=== PATIENT | female | born 1945 | race Caucasian/White ===

== ENCOUNTER → 2016-09-16 | Outpatient (CLI) | payer OTHER ==
[~2016-09-16] MED LIST: ACET-1256 PO; CALC500C70 PO; FBR PO; FISHOIL PO; LEVO125T72 PO; MULTTAB58 PO; NAPR1TAB9 PO; OMEP20CA59 PO; POTA8CAP6 PO
[2016-09-16 10:57] LABS: BASO % 0.4 %; BASO ABS # 0.03 K/uL (0-0.2); COMPLETE YES; EOS % 2.5 %; HEMATOCRIT 41.3 % (37-47); IG% 0.3 %; LYMPH % 29.1 %; LYMPH ABS # 2.01 K/uL (1.2-3.4); MEAN CORPUSCULAR HEMOGLOBIN 31.8 pg (25-34); MEAN CORPUSCULAR HGB CONC 34.6 g/dl (32-36); MEAN PLATELET VOLUME 10.2 fL (7.4-10.4); MONO % 8.8 %; NEUT % 58.9 %; PLATELET COUNT 198 K/uL (130-400); RED BLOOD COUNT 4.49 M/uL (4.2-5.4); WHITE BLOOD COUNT 6.91 K/uL (4.8-10.8)
[2016-09-16 11:19] LABS: ALT/SGPT 29 U/L (12-78); AST/SGOT 21 U/L (15-37); BLOOD UREA NITROGEN 17 mg/dl (7-18); BUN/CREATININE RATIO 17.4 (10-20); CALCIUM 8.9 mg/dl (8.5-10.1); CARBON DIOXIDE 31 mmol/L (21-32); CHLORIDE 107 mmol/L (98-107); CHOLESTEROL 175 mg/dl (0-200); CREATININE 0.99 mg/dl (0.60-1.20); GLUCOSE 98 mg/dl (70-99); POTASSIUM 3.7 mmol/L (3.5-5.1); SODIUM 143 mmol/L (136-145); TRIGLYCERIDES 109 mg/dl (0-150); VERY LOW DENSITY LIPOPROT CALC 22 mg/dl
[2016-09-16 11:22] LABS: ALB/GLOB RATIO 1.3 (0.9-2); ALKALINE PHOSPHATASE 73 U/L (45-117); CHOLESTEROL/HDL RATIO 2.2; HDL CHOLESTEROL 81 mg/dl; LDL CHOLESTEROL CALCULATED 72 mg/dl
== END | disposition home or self-care (01) ==
LOC: C.LABBC 08:41
PROVIDERS: ATTEND Internal Medicine Pulmonary Disease
DX: E03.9 Hypothyroidism, unspecified (principal); E78.5 Hyperlipidemia, unspecified

== ENCOUNTER → 2017-02-08 | Outpatient (CLI) | payer OTHER ==
--- NOTE | 2017-02-08 11:15 | DIAGNOSTIC IMAGING REPORT ---
LEFT FOOT MIN 3 VIEWS ROUTINE CLINICAL HISTORY: 71 years-old Female presenting with acute foot pain at the left fifth metatarsal. TECHNIQUE: Frontal, oblique, and lateral views of the left foot were obtained. COMPARISON: Comparison made to plain radiographs of the right foot from 2015. FINDINGS: No acute fracture or malalignment. Minimal degenerative change noted at the first metatarsophalangeal joint, which is less severe than on the right. Prominent bone spurs at the inferior and posterior calcaneus. Apparent cortical irregularity of the lateral aspect of the base of the fifth metatarsal is suggested, although not corroborated on additional views. This is indeterminate. IMPRESSION: Apparent cortical irregularity at the lateral aspect of the base of the fifth metatarsal is not corroborated on all views. This is indeterminate. Correlate for point tenderness at this site. If there is continuing clinical concern, noncontrast MR be obtained. Electronically signed by: Chan Covington M.D. 02/08/2017 11:13 AM Dictated Date/Time: 02/08/2017 11:11 AM
== END | disposition home or self-care (01) ==
LOC: C.RAD1850 10:32
PROVIDERS: ATTEND Internal Medicine Pulmonary Disease
DX: M79.672 Pain in left foot (principal); R93.7 Abnormal findings on diagnostic imaging of other parts of musculoskeletal system

== ENCOUNTER → 2017-03-31 | Outpatient (CLI) | payer OTHER ==
--- NOTE | 2017-03-31 15:47 | MAMMOGRAPHY REPORT ---
BILATERAL DIGITAL SCREENING MAMMOGRAM TOMOSYNTHESIS WITH CAD: 03/31/2017 CLINICAL HISTORY: Routine screening. Patient has no complaints. TECHNIQUE: Breast tomosynthesis in addition to standard 2D mammography was performed. Current study was also evaluated with a Computer Aided Detection (CAD) system. COMPARISON: Comparison is made to exams dated: 03/30/2016 mammogram, 03/25/2015 mammogram, 03/23/2014 mammogram, 03/22/2013 mammogram, 03/14/2012 mammogram, and 03/11/2011 mammogram - [facility]. BREAST COMPOSITION: There are scattered areas of fibroglandular density in both breasts. FINDINGS: No suspicious masses, calcifications, or areas of architectural distortion are noted in ei ther breast. There has been no significant interval change compared to prior exams. IMPRESSION: ACR BI-RADS CATEGORY 1: NEGATIVE There is no mammographic evidence of malignancy. A 1 year screening mammogram is recommended. The pa tient will receive written notification of the results. Approximately 10% of breast cancers are not detected with mammography. A negative mammographic report should not delay biopsy if a clinically suggestive mass is present. Shasta Melendez M.D. ah/:03/31/2017 13:45:50 Ruby On Rails Software Developer: Kirti YARBROUGH(Malena)(M), [facility] letter sent: Normal 1/2 BI-RADS Code: ACR BI-RADS Category 1: Negative
== END | disposition home or self-care (01) ==
LOC: C.MAMM 13:09
PROVIDERS: ATTEND Obstetrics & Gynecology
DX: Z12.31 Encounter for screening mammogram for malignant neoplasm of breast (principal)

== ENCOUNTER → 2017-06-11 | Outpatient (CLI) | payer OTHER ==
[2017-06-11 14:02] LABS: ALBUMIN 3.9 gm/dl (3.4-5.0); ALT/SGPT 34 U/L (12-78); AST/SGOT 22 U/L (15-37); BLOOD UREA NITROGEN 17 mg/dl (7-18); CALCIUM 8.7 mg/dl (8.5-10.1); CARBON DIOXIDE 31 mmol/L (21-32); CHOLESTEROL 226 mg/dl (0-200); CREATININE 0.93 mg/dl (0.60-1.20); GLUCOSE 102 mg/dl (70-99); POTASSIUM 3.5 mmol/L (3.5-5.1); SODIUM 140 mmol/L (136-145)
[2017-06-11 14:04] LABS: ALKALINE PHOSPHATASE 78 U/L (45-117); LDL CHOLESTEROL CALCULATED 120 mg/dl; TOTAL PROTEIN 7.4 gm/dl (6.4-8.2)
== END | disposition home or self-care (01) ==
LOC: C.LABBC 09:14
PROVIDERS: ATTEND Internal Medicine Pulmonary Disease
DX: E78.5 Hyperlipidemia, unspecified (principal)

== ENCOUNTER 2022-06-29 13:36 | Observation (INO) ==
--- NOTE | 2022-06-29 14:46 | Electrocardiogram Report ---
Test Reason : Blood Pressure : / mmHG Vent. Rate : 079 BPM Atrial Rate : 079 BPM P-R Int : 156 ms QRS Dur : 082 ms QT Int : 396 ms P-R-T Axes : 043 -37 016 degrees QTc Int : 454 ms Sinus rhythm with occasional Premature ventricular complexes Left axis deviation Moderate voltage criteria for LVH, may be normal variant Diffuse Minor Nonspecific ST abnormality Abnormal ECG When compared with ECG of 16-MAR-2012 15:59, Premature ventricular complexes are now Present Confirmed by Yon Lomas ([id number]) on 06/29/2022 2:46:40 PM Referred By: Confirmed By:Yon Lomas
[2022-06-29 14:54] LABS: Basophils # (auto) 0.04 K/uL (0-0.2); Basophils % (auto) 0.6 %; Eosinophils # (auto) 0.17 K/uL (0-0.50); Eosinophils % (auto) 2.4 %; Hematocrit (blood only) 38.7 % (34.1-44.9); Hemoglobin 13.3 g/dl (12.0-16.0); Immature Granulocytes # (auto) 0.03 K/uL (0.00-0.02); Immature Granulocytes % (auto) 0.4 %; Lymphocytes # (auto) 1.79 K/uL (1.2-3.4); Lymphocytes % (auto) 25.1 %; Mean Corpuscular Hemoglobin 32.2 pg (25.0-34.0); Mean Corpuscular Hgb Conc 34.4 g/dL (32.0-36.0); Mean Corpuscular Volume 93.7 fL (80.0-100.0); Mean Platelet Volume 10.7 fL (9.4-12.3); Monocytes # (auto) 0.57 K/uL (0.24-0.82); Neutrophils # (auto) 4.52 K/uL (1.4-6.5); Neutrophils % (auto) 63.5 %; Platelet Count 208 K/uL (130-400); RDW Coefficient of Variation 11.9 % (11.5-14.5); RDW Standard Deviation 40.9 fL (36.4-46.3); Red Blood Count 4.13 M/uL (3.93-5.22); White Blood Count 7.12 K/ul (4.8-10.8)
[2022-06-29 15:11] LABS: Partial Thromboplastin Ratio 0.9; Partial Thromboplastin Time 26.1 Seconds (21.0-31.0); Prothrombin Time 10.6 Seconds (9.0-12.0)
[2022-06-29 15:30] LABS: Albumin Globulin Ratio 1.5 (0.9-2); Albumin Level 4.4 gm/dl (3.4-5.0); BUN Creatinine Ratio 24.5 (10-20); Bilirubin,Total 0.5 mg/dl (0.2-1.0); Est GFR (African American) 66.9 ml/min; Est GFR (Non-African American) 57.7 ml/min; Globulin 2.9 gm/dl (2.5-4.0); Potassium 3.8 mmol/L (3.5-5.1); Total Protein 7.3 gm/dl (6.0-8.3); Troponin I High Sensitivity 12.3 pg/ml (0-14)
--- NOTE | 2022-06-29 15:35 | XRay Report ---
XR chest 1V portable CLINICAL HISTORY: chest pain TECHNIQUE: Single frontal radiograph of the chest was obtained. Comparison: Comparison is made to chest radiograph 03/16/2012 FINDINGS: No lines and tubes are seen. Cardiomegaly is noted. The lungs are clear. No evidence of pleural effus ion or pneumothorax. IMPRESSION: No acute chest disease. ACT 112: Negative or not required by law. Electronically signed by: Danial Prajapati M.D. 06/29/2022 3:34 PM
--- NOTE | 2022-06-29 15:46 | Emergency Department Note ---
Impression & Plan Retrosternal chest pain ED Provider Note INFORMANT: Patient ED PROVIDER(S): Nimesh Montenegro MD CHIEF COMPLAINT: Chest pain PLAN: Disposition: Admitted Condition: Good Outpatient prescription management: none Referral: None MEDICAL DECISION MAKING: Patient presented with a short episode of chest pain. There was some concern given the type of chest pain. Her first ECG was unremarkable. A repeat ECG did not show any significant change. First troponin and remainder of blood work was unremarkable. I did consult with her property worker, Dr. Lomas. He did recommend repeat troponin and could see her in the office if this was negative. Unfortunately repeat troponin had a delta in the wrong direction and was positive. At that point he recommended the patient be admitted for further management. I did consult with the hospitalist service. Patient was admitted for further management. Triage Nursing notes reviewed and agree them. Vital Signs: reviewed and remarkable for no significant abnormalities Prior /Outside records reviewed: none Differential diagnosis: Cardiac ischemia, aortic dissection, pulmonary embolism, pneumothorax, pneumonia, pericarditis, myocarditis, esophageal rupture, GERD, cholecystitis, pancreatitis, musculoskeletal, as well as other pathologies. Diagnostics, as interpreted by me: ECG: Twelve-lead ECG #1 reveals a sinus rhythm with occasional PVCs and left axis deviation at [address] abnormality present. There are some T wave flattening anteriorly when compared to 03/16/2012. Twelve-lead ECG #2 reveals normal sinus rhythm at 68 bpm. Left axis deviation. Voltage could hear for LVH present. When compared to first ECG there is no significant change. Cardiac Monitoring: Cardiac monitoring ordered by me: The patient was placed on continuous cardiac monitoring and observed. It revealed a normal sinus rhythm at 68 beats per minute without ectopy or evidence of dysrhythmia. Medical decision rules: Heart score Imaging studies: Chest x-ray. Findings: A chest x-ray was performed and revealed no pneumothorax, effusion, infiltrate, pulmonary edema, free air under the diaphragm, or wide mediastinum. Impression: No acute disease. HPI: The patient is a 77year old female who presents to the Emergency Room with complaints of retrosternal chest pain. This started this afternoon and is currently resolved. Patient states it lasted about 5 minutes. The patient also notes the following associated symptoms, none. The patient has rested for relieving factors. Current pain is rated as 0/10. No prior cardiac history. Pt denies LOC, headache, fevers, chills, diaphoresis, visual changes, neck pain, breathing difficulties, nausea, vomiting, abdominal pain, back pain, melena, hematochezia, urinary symptoms, numbness, weakness, lymphadenopathy, rash, or other complaints. PAST MEDICAL HISTORY: See Below, high cholesterol, hypertension PAST SURGICAL HISTORY: See Below, SOCIAL HISTORY: See Below, non-smoker. No recent travel. HOME MEDICATIONS: See Below ALLERGIES: See Below VITALS: See Below PHYSICAL EXAMINATION: GENERAL: Awake, alert, well-appearing, in no distress HENT: Normocephalic, atraumatic. Oropharynx unremarkable. EYES: Normal conjunctiva. Sclera non-icteric. NECK: Inspection normal. Non-tender. Supple. No nuchal rigidity. FROM. No masses. RESPIRATORY: Clear to auscultation. No wheezes. No rales. Normal respiratory effort. CARDIAC: Normal rate. Normal rhythm. No murmurs. No rubs. Extremities warm and well perfused. Pulses equal. No JVD. GI: Soft, non-distended. No tenderness to palpation. No rebound or guarding. No masses. RECTAL: Deferred. MUSCULOSKELETAL: Atraumatic. Chest examination reveals no tenderness. The back is symmetrical on inspection without obvious abnormality. There is no CVA tenderness to palpation. No joint edema. LOWER EXTREMITIES: Calves are equal size bilaterally and non-tender. No edema. No discoloration. NEURO: Normal sensorium. No sensory or motor deficits noted. SKIN: No rash or jaundice noted. OBSERVATION NOTE: The patient was placed in observation status at 1500 hrs. Chest pain indication. During the time in observation, the patient was frequently reassessed and received monitoring. Repeat troponin testing was performed after consultation with cardiology. Unfortunately her troponin increased and cardiology recommended admission at that time. On Final reassessment the patient is doing well however will require admission. Consultation was made with the hospitalist service and the patient will be admitted at this time. A total observation time of 2.5 hours. Past Med/Surg History Medical History Bilateral salpingectomy with oophorectomy (03/23/12) Ectopic heartbeat Metoprolol for this > follows Kip Marry GERD (gastroesophageal reflux disease) on occasion History of Mohs micrographic surgery for skin cancer Hyperlipidemia Hypertension Hypothyroidism Pseudocholinesterase deficiency had reaction during procedure 1987 in which this was discovered > couldn't breath/ paralysis Vaginal hysterectomy (03/23/12) Surgical History History of appendectomy History of cholecystectomy History of colonoscopy (2014) History of dilation and curettage History of oral surgery wisdom teeth History of thyroid surgery total thyroidectomy for malignancy> also radioactive iodine History of tonsillectomy and adenoidectomy Family History Mother Diabetes Brother Diabetes Father Heart disease Family/Other Diabetes Grandfather Colon cancer Social History Smoking Status: Never smoker Second Hand Exposure: No; Hx Alcohol Use: Yes Alcohol type: wine Hx Substance Use: No Preferred Language: Vietnamese Communication Ability: Effective 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 Beliefs That Will Affect Care: None marital status: Current Living Situation: Spouse current occupational status: retired Feels Safe at Home: Yes Assistive Devices: None Allergies Allergies Allergy/AdvReac Type Severity Reaction Status Date / Time succinylcholine Allergy Severe paralysis/ Verified 06/29/22 17:48 can't breathe cephalexin [From Keflex] Allergy Intermediate Rash Verified 06/29/22 17:48 codeine Allergy Intermediate SYMPTOMATIC Verified 06/29/22 17:48 HYPOTENSION diphenhydramine Allergy Intermediate bradycardia Verified 06/29/22 17:48 [From Benadryl] tetracycline Allergy Intermediate MUSCLE PAIN Verified 06/29/22 17:48 erythromycin base Allergy Mild Nausea Verified 06/29/22 17:48 Penicillins Allergy Mild RASH Verified 06/29/22 17:48 Sulfa (Sulfonamide Allergy Mild RASH Verified 06/29/22 17:48 Antibiotics) sumatriptan Allergy Mild HIVES Verified 06/29/22 17:48 latex Allergy Unknown SKIN RED Verified 06/29/22 17:48 AND ITCHY meperidine AdvReac Unknown VOMITING Verified 06/29/22 17:48 Home Meds Home Medications Medication Instructions Recorded Confirmed docusate sodium 100 mg capsule 100 mg PO QDL 01/19/19 06/29/22 (Colace) omeprazole 20 mg capsule,delayed 20 mg PO DAILY PRN Acid Reflux 05/29/20 06/29/22 release calcium carbonate 600 mg calcium 600 mg PO QAM 10/02/20 06/29/22 (1,500 mg) tablet (Calcium) multivitamin 1 tab PO PM 10/02/20 06/29/22 psyllium 500 mg capsule 0.52 g PO BID 10/02/20 06/01/22 diclofenac sodium 1 % topical gel 2 g topical BID PRN Pain 06/29/22 06/29/22 (Arthritis Pain (diclofenac)) estradiol 10 mcg vaginal insert 10 mcg vaginal WK 06/29/22 06/29/22 fluvastatin 20 mg capsule 20 mg PO HS 06/29/22 06/29/22 metoprolol succinate 25 mg 25 mg PO BID 06/29/22 06/29/22 tablet,extended release 24 hr omega-3 fatty acids 1,000 mg 1,000 mg PO BIDM 06/29/22 06/29/22 capsule psyllium husk 0.52 gram capsule 1.04 g PO BIDM 06/29/22 06/29/22 (Fiber (psyllium husk)) Previous Rx's Medication Instructions Recorded potassium chloride 20 mEq 20 meq PO QDL #90 tabs 11/27/21 tablet,extended release(part/cryst) levothyroxine 125 mcg tablet 125 mcg PO DAILY #90 tabs 05/05/22 clobetasol 0.05 % topical cream 1 applic topical DAILY PRN 05/20/22 vulvitis #45 grams diltiazem HCl 120 mg capsule,24 120 mg PO PM #90 caps 06/01/22 hr,extended release Results & Data (ED) Vital Signs Vital Signs - 24 hr 06/29/22 13:43 06/29/22 14:18 06/29/22 14:18 Temperature 36.5 C Temperature Source Skin Pulse Rate 84 Pulse Rate [Apical] 72 Pulse Rhythm Regular Pulse Rhythm [Apical] Regular Pulse Strength Normal Pulse Strength [Apical] Normal Respiratory Rate 20 16 Respiratory Effort / Characteristics Non-Labored Spontaneous Non-Labored Respiratory Depth Normal Normal Respiratory Pattern Regular Regular Blood Pressure 150/79 H Blood Pressure [Right Arm] 167/94 H Blood Pressure Mean 102 Blood Pressure Mean [Right Arm] 118 Pulse Oximetry 95 96 96 Oxygen Delivery Method Room Air Room Air Room Air Sepsis Recent Fever Within 48 Hours No Sepsis New/Unexplained Change in Mental Status N/A Sepsis Action Taken by Nursing No Action Required 06/29/22 17:00 06/29/22 18:30 06/29/22 19:00 Temperature Temperature Source Pulse Rate 72 69 Pulse Rate [Apical] 69 Pulse Rhythm Pulse Rhythm [Apical] Regular Pulse Strength Pulse Strength [Apical] Normal Respiratory Rate 22 16 19 Respiratory Effort / Characteristics Non-Labored Respiratory Depth Normal Respiratory Pattern Regular Blood Pressure 144/88 H 160/88 H Blood Pressure [Right Arm] 137/73 Blood Pressure Mean 106 112 Blood Pressure Mean [Right Arm] 94 Pulse Oximetry 97 96 96 Oxygen Delivery Method Room Air Room Air Room Air Sepsis Recent Fever Within 48 Hours Sepsis New/Unexplained Change in Mental Status Sepsis Action Taken by Nursing 06/29/22 19:30 Temperature Temperature Source Pulse Rate 88 Pulse Rate [Apical] Pulse Rhythm Pulse Rhythm [Apical] Pulse Strength Pulse Strength [Apical] Respiratory Rate 18 Respiratory Effort / Characteristics Respiratory Depth Respiratory Pattern Blood Pressure 155/90 H Blood Pressure [Right Arm] Blood Pressure Mean 111 Blood Pressure Mean [Right Arm] Pulse Oximetry 93 Oxygen Delivery Method Room Air Sepsis Recent Fever Within 48 Hours Sepsis New/Unexplained Change in Mental Status Sepsis Action Taken by Nursing Laboratory Data 06/29/22 13:56 06/29/22 13:56 Lab Results 06/29/22 06/29/22 06/29/22 Range/Units 13:56 13:56 13:56 WBC 7.12 (4.8-10.8) K/ul RBC 4.13 (3.93-5.22) M/uL Hgb 13.3 (12.0-16.0) g/dl Hct 38.7 (34.1-44.9) % MCV 93.7 (80.0-100.0) fL MCH 32.2 (25.0-34.0) pg MCHC 34.4 (32.0-36.0) g/dL RDW Std Deviation 40.9 (36.4-46.3) fL RDW Coeff of Georgie 11.9 (11.5-14.5) % Plt Count 208 (130-400) K/uL MPV 10.7 (9.4-12.3) fL Immature Gran % (Auto) 0.4 % Neut % (Auto) 63.5 % Lymph % (Auto) 25.1 % [place] % (Auto) 8.0 % Eos % (Auto) 2.4 % Baso % (Auto) 0.6 % Neut # (Auto) 4.52 (1.4-6.5) K/uL Lymph # (Auto) 1.79 (1.2-3.4) K/uL [place] # (Auto) 0.57 (0.24-0.82) K/uL Eos # (Auto) 0.17 (0-0.50) K/uL Baso # (Auto) 0.04 (0-0.2) K/uL Immature Gran # (Auto) 0.03 H (0.00-0.02) K/uL PT 10.6 (9.0-12.0) Seconds INR 1.0 (0.9-1.1) APTT 26.1 (21.0-31.0) Seconds PTT Ratio 0.9 Sodium 139 (136-145) mmol/L Potassium 3.8 (3.5-5.1) mmol/L Chloride 105 (98-107) mmol/L Carbon Dioxide 27 (21-32) mmol/L Anion Gap 7 (3-11) BUN 23 (6-23) mg/dl Creatinine 0.94 (0.6-1.2) mg/dl Est Cr Clr Drug Dosing 41.0 ml/min Est GFR ( Amer) 66.9 ml/min Est GFR (Non-Af Amer) 57.7 ml/min BUN/Creatinine Ratio 24.5 H (10-20) Glucose 155 H (70-99(Fasting)) mg/dl Calcium 9.0 (8.5-10.1) mg/dl Total Bilirubin 0.5 (0.2-1.0) mg/dl AST 23 (13-39) U/L ALT 19 (7-52) U/L Alkaline Phosphatase 71 (34-104) U/L Troponin I High Sens 12.3 (0-14) pg/ml Total Protein 7.3 (6.0-8.3) gm/dl Albumin 4.4 (3.4-5.0) gm/dl Globulin 2.9 (2.5-4.0) gm/dl Albumin/Globulin Ratio 1.5 (0.9-2) 06/29/22 Range/Units 16:12 WBC (4.8-10.8) K/ul RBC (3.93-5.22) M/uL Hgb (12.0-16.0) g/dl Hct (34.1-44.9) % MCV (80.0-100.0) fL MCH (25.0-34.0) pg MCHC (32.0-36.0) g/dL RDW Std Deviation (36.4-46.3) fL RDW Coeff of Georgie (11.5-14.5) % Plt Count (130-400) K/uL MPV (9.4-12.3) fL Immature Gran % (Auto) % Neut % (Auto) % Lymph % (Auto) % [place] % (Auto) % Eos % (Auto) % Baso % (Auto) % Neut # (Auto) (1.4-6.5) K/uL Lymph # (Auto) (1.2-3.4) K/uL [place] # (Auto) (0.24-0.82) K/uL Eos # (Auto) (0-0.50) K/uL Baso # (Auto) (0-0.2) K/uL Immature Gran # (Auto) (0.00-0.02) K/uL PT (9.0-12.0) Seconds INR (0.9-1.1) APTT (21.0-31.0) Seconds PTT Ratio Sodium (136-145) mmol/L Potassium (3.5-5.1) mmol/L Chloride (98-107) mmol/L Carbon Dioxide (21-32) mmol/L Anion Gap (3-11) BUN (6-23) mg/dl Creatinine (0.6-1.2) mg/dl Est Cr Clr Drug Dosing ml/min Est GFR ( Amer) ml/min Est GFR (Non-Af Amer) ml/min BUN/Creatinine Ratio (10-20) Glucose (70-99(Fasting)) mg/dl Calcium (8.5-10.1) mg/dl Total Bilirubin (0.2-1.0) mg/dl AST (13-39) U/L ALT (7-52) U/L Alkaline Phosphatase (34-104) U/L Troponin I High Sens 15.2 H (0-14) pg/ml Total Protein (6.0-8.3) gm/dl Albumin (3.4-5.0) gm/dl Globulin (2.5-4.0) gm/dl Albumin/Globulin Ratio (0.9-2) Administered Medications Discontinued Medications Aspirin (Aspirin Chew 324 Mg) 243 mg PO NOW STA Stop: 06/29/22 17:35 Last Admin: 06/29/22 17:42 Dose: 243 mg Documented By: DANIEL Diltiazem HCl (Diltiazem Hcl 120 Mg Capcr) 120 mg PO ONCE STA Stop: 06/29/22 19:52 Last Admin: 06/29/22 20:46 Dose: 120 mg Documented By: HENRRY Fluvastatin Sodium (Fluvastatin Sodium 20 Mg Cap) 20 mg PO HS JOVITA Stop: 07/29/22 20:59 Last Admin: 06/29/22 22:02 Dose: 20 mg Documented By: HENRRY Levothyroxine Sodium (Levothyroxine Sodium 125 Mcg Tablet) 125 mcg PO DAILY JOVITA Stop: 07/30/22 08:59 Last Admin: 06/30/22 08:20 Dose: 125 mcg Documented By: MELANIE Metoprolol Succinate (Metoprolol Succ 25mg Ext Rel Tab) 25 mg PO ONCE STA Stop: 06/29/22 19:52 Last Admin: 06/29/22 20:46 Dose: 25 mg Documented By: HENRRY Metoprolol Succinate (Metoprolol Succ 25mg Ext Rel Tab) 25 mg PO BID JOVITA Stop: 07/30/22 08:59 Last Admin: 06/30/22 08:20 Dose: 25 mg Documented By: MELANIE Pantoprazole Sodium (Pantoprazole 40 Mg Tab) 40 mg PO NOW STA Stop: 06/29/22 17:35 Last Admin: 06/29/22 17:42 Dose: 40 mg Documented By: DANIEL Imaging Data Radiologist's Impression: Chest X-Ray 06/29/22 15:23 XR chest 1V portable CLINICAL HISTORY: chest pain TECHNIQUE: Single frontal radiograph of the chest was obtained. Comparison: Comparison is made to chest radiograph 03/16/2012 FINDINGS: No lines and tubes are seen. Cardiomegaly is noted. The lungs are clear. No evidence of pleural effusion or pneumothorax. IMPRESSION: No acute chest disease. ACT 112: Negative or not required by law. Electronically signed by: Danial Prajapati M.D. 06/29/2022 3:34 PM Discharge Plan Visit Data Chief Complaint: Chest Pain Stated Complaint: CHEST PAIN ED Provider: Nimesh Montenegro Discharge Problem: Retrosternal chest pain Patient Disposition: Admitted As Inpatient Discharge Instructions Interventions: ED Discharge Assessment Last Done: 06/29/22 20:05
--- NOTE | 2022-06-29 16:37 | Electrocardiogram Report ---
Test Reason : Blood Pressure : / mmHG Vent. Rate : 068 BPM Atrial Rate : 068 BPM P-R Int : 172 ms QRS Dur : 092 ms QT Int : 436 ms P-R-T Axes : 021 -38 -09 degrees QTc Int : 463 ms Normal sinus rhythm Left axis deviation Voltage criteria for left ventricular hypertrophy Diffuse Minor Nonspecific ST abnormality Abnormal ECG When compared with ECG of 29-JUN-2022 13:48, Premature ventricular complexes are no longer Present Otherwise no significant change Confirmed by Yon Lomas ([id number]) on 06/29/2022 4:36:57 PM Referred By: REFERRED SELF Confirmed By:Yon Lomas
[2022-06-29] MEDS ORDERED: ASPIRIN CHEW 324 MG PO STA (17:34)
[2022-06-29] MEDS ORDERED: PANTOprazole 40 MG TAB PO STA (17:34)
--- NOTE | 2022-06-29 17:45 | History & Physical Report ---
Date of Service June 29, 2022 Assessment & Plan (1) Retrosternal chest pain: Plan: -Admit to med/tele -Patient is currently afebrile, hemodynamically stable, and stable on RA -Patient experienced a 5 minute episode of substernal chest pain which lasted approximately 5 min this am, it resolved with rest and she has been asymptomatic since -Initial High sensitivity trop was WNL at 12.3, 2 hour repeat was noted to be 15 but without acute ECG changes. -Cardiology was contacted by the ED staff, they evaluated the patient and recommended observation with likely stress test tomorrow -Will monitor q6h troponin overnight and monitor on tele, if any significant c hanges in symptoms or significant troponin changes would reach back out to Cardiology -Monitor on telel -AM CBC, BMP (2) Coronary artery calcification: Plan: -Patient took 2 doses of baby aspirin prior to arrival at the ED, was given 243 mg PO Aspirin in the ED prior to admission -Continue fluvastatin (3) Hypercholesterolemia: Plan: -Continue fluvastatin (4) Hypertension: Plan: -Hemodynamically stable -Conitnue diltiazem and metoprolol (5) Paroxysmal atrial tachycardia: Plan: -Continue metoprolol and diltiazem (6) Hypothyroidism: Plan: -Continue levothyroxine Plan The patient was discussed with Dr. Webb at the time of the admission History of Present Illness Chief Complaint: Chest pain Primary Care Provider: Nimesh Ozuna MD Shahida Cardozo is a 76-year-old female with a history of Coronary Artery Calcifications, Thyroid Cancer s/p Total Thyroidectomy, Nodular Melanoma of the Skin s/p Surgical Excision, Paroxysmal Atrial Tachycardia, Hypercholesterolemia, and Symptomatic PVCs who presented to the [facility] with a chief complaint of chest pain. In the ED the patient was found to be afebrile, hemodynamically stable, and stable on RA. Labs were remarkable for a WBC WNL, stable Hgb and Platelet count, stable Cr at 0.94 with stable electrolytes, and initial High sensitivity trop of 12. Chest xray was read as "No acute chest disease.". Two hour repeat high sensitivity trop was slightly increased at 15.2 but without acute changes in her ECG compared to previous. The ED staff spoke with Cardiology who recommended medicine admission with continued trending of her troponin overnight. The plan will likely be to do a stress test tomorrow unless she would have significant changes overnight. At the time of the exam the patient was resting comfortably in bed in no acute distress with her , Dr. Cardozo (Previous [facility]), sitting bedside; history was obtained from both. They state that the patient was in her normal state of health, which includes going to the gym multiple times a week and playing tennis three times weekly. She was packing for a trip to [place] this Wednesday and states that she was bending over frequently while packing her suitcase. This am she started walking down the stairs when she experienced sudden onset of 5/10, dull, substernal chest pain. She denies the pain radiating anywhere, SOB, diaphoresis, cough, nausea, vomiting, dysuria, hematuria, and recent trauma. She went and sat down after experiencing the pain which lasted approximately 5 minutes in total. Her gave her two baby aspirin and Tums, this did not change her symptoms. At the time of my exam the patient is symptom free and was able to ambulate to the bathroom without recurrence of her symptoms. She denies recent JAY, orthopnea, or PND. She does not have a history of active or previous tobacco use. I spoke to she and her regarding code status, she wishes to be a full code. Her would make decisions for her if she could not make them herself. Of note, the patient was last seen by Cardiology on 06/01/22 for routine follow-up, her only medication change was reducing her 50 mg BID of Metoprolol Succinate to 25 mg BID. Since reducing the dose of her metoprolol this has been the only episode of chest discomfort. Please refer to Dr. Webb's attestation for any changes to the treatment plan Allergies Allergy/AdvReac Type Severity Reaction Status Date / Time succinylcholine Allergy Severe paralysis/ Verified 06/29/22 17:48 can't breathe cephalexin [From Keflex] Allergy Intermediate Rash Verified 06/29/22 17:48 codeine Allergy Intermediate SYMPTOMATIC Verified 06/29/22 17:48 HYPOTENSION diphenhydramine Allergy Intermediate bradycardia Verified 06/29/22 17:48 [From Benadryl] tetracycline Allergy Intermediate MUSCLE PAIN Verified 06/29/22 17:48 erythromycin base Allergy Mild Nausea Verified 06/29/22 17:48 Penicillins Allergy Mild RASH Verified 06/29/22 17:48 Sulfa (Sulfonamide Allergy Mild RASH Verified 06/29/22 17:48 Antibiotics) sumatriptan Allergy Mild HIVES Verified 06/29/22 17:48 latex Allergy Unknown SKIN RED Verified 06/29/22 17:48 AND ITCHY meperidine AdvReac Unknown VOMITING Verified 06/29/22 17:48 Home Medications Medication Instructions Recorded Confirmed Type docusate sodium 100 mg capsule 100 mg PO QDL 01/19/19 06/29/22 History (Colace) omeprazole 20 mg capsule,delayed 20 mg PO DAILY PRN Acid Reflux 05/29/20 06/29/22 History release calcium carbonate 600 mg calcium 600 mg PO QAM 10/02/20 06/29/22 History (1,500 mg) tablet (Calcium) multivitamin 1 tab PO PM 10/02/20 06/29/22 History psyllium 500 mg capsule 0.52 g PO BID 10/02/20 06/01/22 History potassium chloride 20 mEq 20 meq PO QDL #90 tabs 11/27/21 06/29/22 Rx tablet,extended release(part/cryst) levothyroxine 125 mcg tablet 125 mcg PO DAILY #90 tabs 05/05/22 06/29/22 Rx clobetasol 0.05 % topical cream 1 applic topical DAILY PRN 05/20/22 06/29/22 Rx vulvitis #45 grams diltiazem HCl 120 mg capsule,24 120 mg PO PM #90 caps 06/01/22 06/29/22 Rx hr,extended release diclofenac sodium 1 % topical gel 2 g topical BID PRN Pain 06/29/22 06/29/22 History (Arthritis Pain (diclofenac)) estradiol 10 mcg vaginal insert 10 mcg vaginal WK 06/29/22 06/29/22 History fluvastatin 20 mg capsule 20 mg PO HS 06/29/22 06/29/22 History metoprolol succinate 25 mg 25 mg PO BID 06/29/22 06/29/22 History tablet,extended release 24 hr omega-3 fatty acids 1,000 mg 1,000 mg PO BIDM 06/29/22 06/29/22 History capsule psyllium husk 0.52 gram capsule 1.04 g PO BIDM 06/29/22 06/29/22 History (Fiber (psyllium husk)) Past Med/Surg History Medical History Bilateral salpingectomy with oophorectomy (03/23/12) Ectopic heartbeat GERD (gastroesophageal reflux disease) History of Mohs micrographic surgery for skin cancer Hyperlipidemia Hypertension Hypothyroidism Pseudocholinesterase deficiency Vaginal hysterectomy (03/23/12) Surgical History History of appendectomy History of cholecystectomy History of colonoscopy (2014) History of dilation and curettage History of oral surgery History of thyroid surgery History of tonsillectomy and adenoidectomy Family History Mother Diabetes Brother Diabetes Father Heart disease Family/Other Diabetes Grandfather Colon cancer Social History Smoking Status: Never smoker Second Hand Exposure: No; Do You Dip or Chew Tobacco: No; Tobacco Cessation Education Requested by Patient: No Hx Alcohol Use: Yes Alcohol type: wine Hx Substance Use: No Preferred Language: Greenlandic Communication Ability: Effective 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 All systems have been reviewed and are otherwise negative. Physical Exam Physical Exam: Physical Exam: General: In no acute distress, stated age, well-nourished, good hygiene, non- toxic appearing HEENT: Normocephalic, atraumatic, no scleral icterus, pupils around round, symmetrical, and reactive to light, moist mucus membranes, trachea midline, no thyromegaly Chest/Pulm: No respiratory distress, symmetrical chest expansion, clear breath sounds throughout, patient is without reproducible tenderness to palpation over the sternum Cardiac: RRR, no murmurs noted Abdomen: Negative for ascites and bruising, normoactive bowel sounds, soft, non-tender to palpation throughout Musculoskeletal: Symmetrical and without signs of acute trauma, upper and lower extremities with full ROM, no atrophy, spasticity, or flaccidity Extremities: Radial, dorsalis pedis, and posterior tibial pulses are intact and symmetrical, no edema noted in the BL LE's Skin: Warm, dry, no rashes , lesions, or scars noted Neuro: Alert and oriented to person, place, month, year, and president, no focal defects, CN II-XII tested and intact, finger to nose test negative, no tremors noted Psych: No acute distress, calm and cooperative during the exam Results & Data Results & Data ([facility]) Vital Signs (Past 12 Hours) Vital Signs Temp Pulse Pulse Resp BP BP Pulse Ox 06/29/22 17:00 69 22 137/73 97 06/29/22 14:18 72 16 167/94 H 96 06/29/22 14:18 96 06/29/22 13:43 36.5 C 84 20 150/79 H 95 O2 Del Method 06/29/22 17:00 Room Air 06/29/22 14:18 Room Air 06/29/22 14:18 Room Air 06/29/22 13:43 Room Air Laboratory Results Abnormal lab results 06/29/22 06/29/22 06/29/22 Range/Units 13:56 13:56 16:12 Immature Gran # (Auto) 0.03 H (0.00-0.02) K/uL BUN/Creatinine Ratio 24.5 H (10-20) Glucose 155 H (70-99(Fasting)) mg/dl Troponin I High Sens 15.2 H (0-14) pg/ml Diagnostic Findings Chest X-Ray 06/29/22 15:23 XR chest 1V portable CLINICAL HISTORY: chest pain TECHNIQUE: Single frontal radiograph of the chest was obtained. Comparison: Comparison is made to chest radiograph 03/16/2012 FINDINGS: No lines and tubes are seen. Cardiomegaly is noted. The lungs are clear. No evidence of pleural effusion or pneumothorax. IMPRESSION: No acute chest disease. ACT 112: Negative or not required by law. Electronically signed by: Danial Prajapati M.D. 06/29/2022 3:34 PM ECG Additional Comments: Normal sinus rhythm Left axis deviation Voltage criteria for left ventricular hypertrophy Diffuse Minor Nonspecific ST abnormality Abnormal ECG When compared with ECG of 29-JUN-2022 13:48, Premature ventricular complexes are no longer Present Otherwise no significant change Confirmed by Yon Lomas ([id number]) on 06/29/2022 4:36:57 PM Code Status & VTE Plan Code Status Full Code VTE Prophylaxis Plan VTE Prophylaxis will be ordered: Yes Supervising Physician Co-Signing Physician Notes I personally saw and examined the patient. I verified all francisco points and agree with Tadeo Lopes PA-C with the following exceptions and/or additions: 77 year old female with 5 minutes of exertional retrosternal chest pain. Minimal troponin increase at 2 hours. Previously very active without chest pain or shortness of breath. No prior LA. O/E A&Ox3, HS1+2, no murmurs, RRR, Chest CTAB A/P Exertional chest pain rule out LA - serial troponins overnight. Already discussed with cardiology by ER physician and likely planning on stress testing tomorrow unless significant troponin increase overnight. PG Care Time/CCT Total # of Minutes Spent Total Time Spent with Patient: Total time spent is greater than 50% in coordination of care (as documented) at patient's floor/unit and/or counseling patient: C[place] [address] INT INP/OBS CARE 2/55MIN Patient Type Established Medical Decision Making High Complexity Diagnoses Retrosternal chest pain R07.2 Coronary artery calcification I25.10; I25.84 Hypercholesterolemia E78.00 Hypertension I10 Paroxysmal atrial tachycardia I47.1 Hypothyroidism E03.9
[2022-06-29] MEDS ORDERED: dilTIAZem HCL 120 MG CAPCR PO STA (19:51)
[2022-06-29] MEDS ORDERED: METOPROLOL SUCC 25MG EXT REL TAB PO STA (19:51)
[2022-06-29] MEDS ORDERED: PANTOprazole 40 MG TAB PO PRN (20:46)
[2022-06-29] MEDS ORDERED: dilTIAZem HCL 120 MG CAPCR PO SCH (21:00)
[2022-06-29] MEDS ORDERED: FLUVASTATIN SODIUM 20 MG CAP PO SCH (21:00)
[2022-06-30 06:42] LABS: Hematocrit (blood only) 37.8 % (34.1-44.9); Hemoglobin 12.8 g/dl (12.0-16.0); Mean Corpuscular Hemoglobin 32.2 pg (25.0-34.0); Mean Corpuscular Hgb Conc 33.9 g/dL (32.0-36.0); Mean Platelet Volume 10.2 fL (9.4-12.3); Platelet Count 192 K/uL (130-400); RDW Coefficient of Variation 11.9 % (11.5-14.5); RDW Standard Deviation 41.2 fL (36.4-46.3); Red Blood Count 3.98 M/uL (3.93-5.22); White Blood Count 7.75 K/ul (4.8-10.8)
[2022-06-30 07:30] LABS: BUN Creatinine Ratio 22.6 (10-20); Calcium 8.4 mg/dl (8.5-10.1); Creatinine Clr Calc Pharmacy 45.9 ml/min; Est GFR (African American) 76.6 ml/min; Est GFR (Non-African American) 66.1 ml/min; Potassium 3.3 mmol/L (3.5-5.1)
[2022-06-30] MEDS ORDERED: LEVOTHYROXINE SODIUM 125 MCG TABLET PO SCH (09:00)
[2022-06-30] MEDS ORDERED: METOPROLOL SUCC 25MG EXT REL TAB PO SCH (09:00)
[2022-06-30] MEDS ORDERED: CALCIUM CARBONATE 1250MG TAB PO SCH (09:00)
--- NOTE | 2022-06-30 09:56 | XCELERA ---
[id number]
[2022-06-30] MEDS ORDERED: POTASSIUM CHLORIDE CRTAB 20 MEQ TABCR PO SCH (11:30)
[2022-06-30] MEDS ORDERED: DOCUSATE SODIUM 100 MG CAP PO SCH (11:30)
--- NOTE | 2022-06-30 12:53 | Cardiology Consultation ---
Date of Consultation June 30, 2022 Assessment & Plan (1) Chest pain at rest: (2) Elevated coronary artery calcium score: (3) Troponin I above reference range: (4) Hypertension: Plan Etiology of her chest discomfort is uncertain, possibly esophageal spasm. No inducible myocardial ischemia at high workload on stress echocardiogram this morning. Okay to resume full activity and to travel to [place]. Continue usual medications. Although she was mildly hypertensive at times while in hospital, she has no LVH on her echocardiogram and her blood pressure readings at home are generally normotensive, thus no change in her vasoactive regimen. Given uncertainty regarding the etiology of her chest discomfort episode, she knows to report any additional episodes. History of Present Illness Reason for Consultation: Troponin elevation/chest pain Requesting Physician: Dimitry Webb MD Attending Physician: Dimitry Webb MD History of Present Illness 77-year-old woman with history of paroxysmal atrial tachycardia and elevated coronary calcium score, no prior infarcts or ischemic cardiac events, who experienced 5 minutes of central chest discomfort on the day of admission and was subsequently noted to have a mild elevation in serial troponins (12.3 rising to 15.2), admitted for observation and further evaluation to exclude occlusive coronary artery disease. Her initial episode was described as central chest pressure without radiation or epiphenomenon. No unusual oral intake or activities, occurred at rest. Symptoms resolved within minutes, however she was concerned since she will be traveling to [place] later this week. ER evaluation showed ECG with nonspecific ST depression which is chronic (noted on 2012 ECG) and troponin values as noted. She had an uneventful night with no further chest discomfort. Underwent stress echocardiogram this morning and walked for 6 minutes on a Shahzad protocol achieving 92% maximum predicted heart rate. No symptoms, further ECG changes, or echocardiographic abnormalities. Allergies Allergy/AdvReac Type Severity Reaction Status Date / Time succinylcholine Allergy Severe paralysis/ Verified 06/29/22 17:48 can't breathe cephalexin [From Keflex] Allergy Intermediate Rash Verified 06/29/22 17:48 codeine Allergy Intermediate SYMPTOMATIC Verified 06/29/22 17:48 HYPOTENSION diphenhydramine Allergy Intermediate bradycardia Verified 06/29/22 17:48 [From Benadryl] tetracycline Allergy Intermediate MUSCLE PAIN Verified 06/29/22 17:48 erythromycin base Allergy Mild Nausea Verified 06/29/22 17:48 Penicillins Allergy Mild RASH Verified 06/29/22 17:48 Sulfa (Sulfonamide Allergy Mild RASH Verified 06/29/22 17:48 Antibiotics) sumatriptan Allergy Mild HIVES Verified 06/29/22 17:48 latex Allergy Unknown SKIN RED Verified 06/29/22 17:48 AND ITCHY meperidine AdvReac Unknown VOMITING Verified 06/29/22 17:48 Home Medications Medication Instructions Recorded Confirmed Type docusate sodium 100 mg capsule 100 mg PO QDL 01/19/19 06/29/22 History (Colace) omeprazole 20 mg capsule,delayed 20 mg PO DAILY PRN Acid Reflux 05/29/20 06/29/22 History release calcium carbonate 600 mg calcium 600 mg PO QAM 10/02/20 06/29/22 History (1,500 mg) tablet (Calcium) multivitamin 1 tab PO PM 10/02/20 06/29/22 History psyllium 500 mg capsule 0.52 g PO BID 10/02/20 06/01/22 History potassium chloride 20 mEq 20 meq PO QDL #90 tabs 11/27/21 06/29/22 Rx tablet,extended release(part/cryst) levothyroxine 125 mcg tablet 125 mcg PO DAILY #90 tabs 05/05/22 06/29/22 Rx clobetasol 0.05 % topical cream 1 applic topical DAILY PRN 05/20/22 06/29/22 Rx vulvitis #45 grams diltiazem HCl 120 mg capsule,24 120 mg PO PM #90 caps 06/01/22 06/29/22 Rx hr,extended release diclofenac sodium 1 % topical gel 2 g topical BID PRN Pain 06/29/22 06/29/22 History (Arthritis Pain (diclofenac)) estradiol 10 mcg vaginal insert 10 mcg vaginal WK 06/29/22 06/29/22 History fluvastatin 20 mg capsule 20 mg PO HS 06/29/22 06/29/22 History metoprolol succinate 25 mg 25 mg PO BID 06/29/22 06/29/22 History tablet,extended release 24 hr omega-3 fatty acids 1,000 mg 1,000 mg PO BIDM 06/29/22 06/29/22 History capsule psyllium husk 0.52 gram capsule 1.04 g PO BIDM 06/29/22 06/29/22 History (Fiber (psyllium husk)) Patient History Medical History Bilateral salpingectomy with oophorectomy (03/23/12) Ectopic heartbeat Metoprolol for this > follows Kip Marry GERD (gastroesophageal reflux disease) on occasion History of Mohs micrographic surgery for skin cancer Hyperlipidemia Hypertension Hypothyroidism Pseudocholinesterase deficiency had reaction during procedure 1987 in which this was discovered > couldn't breath/ paralysis Vaginal hysterectomy (03/23/12) Surgical History History of appendectomy History of cholecystectomy History of colonoscopy (2014) History of dilation and curettage History of oral surgery wisdom teeth History of thyroid surgery total thyroidectomy for malignancy> also radioactive iodine History of tonsillectomy and adenoidectomy Family History Mother Diabetes Brother Diabetes Father Heart disease Family/Other Diabetes Grandfather Colon cancer Social History Smoking Status: Never smoker Second Hand Exposure: No; Hx Alcohol Use: Yes Alcohol type: wine Hx Substance Use: No Preferred Language: Djiboutian Communication Ability: Effective 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 BP normotensive/slightly hypertensive at times. Pulse 60-90 bpm range. Skin: no ecchymoses or generalized lesions. HEENT: unremarkable. Neck: no JVD or carotid bruits. Lungs: clear. Cardiac: regular rhythm, normal S1 and S2, no murmur or gallop. Abdomen: benign. Extremities: no edema, pulses intact. Neurologic: normal affect and conversation, nonfocal. Results & Data ([facility]) Vital Signs (Past 12 Hours) Vital Signs Temp Pulse Pulse Resp BP Pulse Ox O2 Del Method 06/30/22 11:44 98.2 F 69 18 148/80 H 96 Room Air 06/30/22 11:28 98.2 F 66 18 146/79 H 94 06/30/22 08:00 98.2 F 66 18 146/79 H 94 Room Air 06/30/22 07:29 64 06/30/22 04:00 97.9 F 67 20 128/77 93 Room Air Laboratory Results Potassium 3.3, otherwise normal electrolytes, BUN 19, creatinine 0.84. High-sensitivity troponin 12.3, 15.2, 10.3, 9.6. Normal CBC. Diagnostic Findings ECG showed sinus rhythm at 79 bpm with occasional PVC, left axis deviation, moderate voltage for LVH, diffuse minor nonspecific ST abnormality (1 mm of horizontal to upsloping ST depression in lead II and anterolateral leads). Repeat ECG several hours after the initial study showed absence of PVCs, and otherwise no significant change. Unremarkable chest x-ray. Stress echo results as noted in HPI. PG Care Time/CCT Total # of Minutes Spent Total Time Spent with Patient: Total time spent is greater than 50% in coordination of care (as documented) at patient's floor/unit and/or counseling patient: Coding Level of Care Code INP/OBS CONSULT LVL 3, 45 MIN Diagnoses Chest pain at rest R07.9 Elevated coronary artery calcium score R93.1 Troponin I above reference range R77.8 Hypertension I10
--- NOTE | 2022-06-30 15:01 | Discharge Summary ---
Date of Service June 30, 2022 Principal Diagnosis non cardiac chest pain Discharge Exam Patient is awake and alert without distress she is able to go home she does not wish for any additional testing we counseled her about possible use of her PPI I did consider follow-up with primary care to talk about her esophageal issues Discharge Data Allergies Allergy/AdvReac Type Severity Reaction Status Date / Time succinylcholine Allergy Severe paralysis/ Verified 06/29/22 17:48 can't breathe cephalexin [From Keflex] Allergy Intermediate Rash Verified 06/29/22 17:48 codeine Allergy Intermediate SYMPTOMATIC Verified 06/29/22 17:48 HYPOTENSION diphenhydramine Allergy Intermediate bradycardia Verified 06/29/22 17:48 [From Benadryl] tetracycline Allergy Intermediate MUSCLE PAIN Verified 06/29/22 17:48 erythromycin base Allergy Mild Nausea Verified 06/29/22 17:48 Penicillins Allergy Mild RASH Verified 06/29/22 17:48 Sulfa (Sulfonamide Allergy Mild RASH Verified 06/29/22 17:48 Antibiotics) sumatriptan Allergy Mild HIVES Verified 06/29/22 17:48 latex Allergy Unknown SKIN RED Verified 06/29/22 17:48 AND ITCHY meperidine AdvReac Unknown VOMITING Verified 06/29/22 17:48 Consultations 06/29/22 17:59 ED Decision to Admit Stat 06/29/22 18:34 Consult Cardiology Routine Procedures Performed 06/30/2022, patient had normal stress echocardiogram. Left ventricular ejection fraction increases normally with stress. Left ventricular end-systolic cavity size reduces poststress. This is a normal response. Left ventricular wall motion with stress is normal. Exercise capacity is above average. There is no inducible ischemia noted at peak stress. Hospital Course (1) Retrosternal chest pain: Patient had normal stress echocardiogram will be released home. Follow-up with cardiology when she returns from [place] consideration of aspirin today -Initial High sensitivity trop was WNL at 12.3, 2 hour repeat was noted to be 15 but without acute ECG changes. - This is felt to be noncardiac chest pain (2) Coronary artery calcification: -Patient took 2 doses of baby aspirin prior to arrival at the ED, was given 243 mg PO Aspirin in the ED prior to admission -Continue fluvastatin (3) Hypercholesterolemia: -Continue fluvastatin (4) Hypertension: -Hemodynamically stable -Conitnue diltiazem and metoprolol (5) Paroxysmal atrial tachycardia: -Continue metoprolol and diltiazem (6) Hypothyroidism: -Continue levothyroxine Total Time Total Time Spent Total Time Spent (In Minutes): It required less than 30 minutes to prepare this patient for discharge Discharge Plan Discharge Items Patient Disposition: Home - Self-Care Reason For Visit: CHEST PAIN Discharge Diagnosis: non cardiac chest pain Activity: Resume your previous activity Non-emergency contact: Primary Care Provider Call non-emergency contact if: your symptoms worsen Follow-up/Referrals: Nimesh Ozuna MD [Primary Care Provider] - (PLEASE CALL YOUR PRIMARY CARE PROVIDER TO SCHEDULE A FOLLOW-UP APPOINTMENT AFTER YOUR RETURN. ) Diet: Heart Healthy Addtl Attending Provider Instructions: please resume typical activity but if symptoms recurr please get re checked Pending Studies at Discharge: No Stand-Alone Forms: [employer], Smoking Cessation Medications and DC Order Prescriptions: Continued docusate sodium [Colace] 100 mg capsule 100 mg PO QDL potassium chloride 20 mEq tablet,ER particles/crystals 20 meq PO QDL Qty: 90 3RF levothyroxine 125 mcg tablet 125 mcg PO DAILY Qty: 90 3RF clobetasol 0.05 % cream 1 applic topical DAILY PRN (Reason: vulvitis) Qty: 45 3RF omeprazole 20 mg capsule,delayed release(DR/EC) 20 mg PO DAILY PRN (Reason: Acid Reflux) diltiazem HCl 120 mg capsule,extended release 24 hr 120 mg PO PM Qty: 90 3RF multivitamin Tablet 1 tab PO PM psyllium 500 mg Capsule 0.52 g PO BID calcium carbonate [Calcium 600] 600 mg calcium (1,500 mg) Tablet 600 mg PO QAM omega-3 fatty acids 1,000 mg Capsule 1,000 mg PO BIDM Rx Instructions: LUNCH & DINNER psyllium husk [Fiber (psyllium husk)] 0.52 gram Capsule 1.04 g PO BIDM Rx Instructions: LUNCH & DINNER fluvastatin 20 mg capsule 20 mg PO HS Rx Instructions: TAKE 1 CAPSULE Daily metoprolol succinate 25 mg tablet extended release 24 hr 25 mg PO BID Rx Instructions: Take 1 tablet by mouth every morning and 1 tablet every evening diclofenac sodium [Arthritis Pain (diclofenac)] 1 % gel 2 g topical BID PRN (Reason: Pain) Rx Instructions: 2 grams topically to the affected area twice daily as needed for pain.; estradiol 10 mcg insert 10 mcg PV WK Rx Instructions: SUNDAYS. Insert vaginally once a week. Discharge Orders: Discharge Order (Routine); Ordered 06/30/22 Ordered By: Robbin Castillo Admission Data Admit Date/Time: 06/29/22 18:20 Attending Provider: Dimitry Webb Admit Provider: Dimitry Webb Primary Care Provider: Nimesh Ozuna Other Providers: Dimitry Webb ; Yon Lomas Other Interventions: Discharge Summary Assessment (RN) Last Done: 06/30/22 11:28 Coding Level of Care Code HOSP INP/OBS DISCH 30 MIN/LESS Diagnoses Retrosternal chest pain R07.2 Coronary artery calcification I25.10; I25.84 Hypercholesterolemia E78.00 Hypertension I10 Paroxysmal atrial tachycardia I47.1 Hypothyroidism E03.9
[2022-06-30] MEDS ORDERED: dilTIAZem HCL 120 MG CAPCR PO SCH (21:00)
== END 2022-06-30 12:37 | disposition home or self-care (01) ==
LOC: 2N 13:36 → ED 13:36 → 2N 20:05